=== PATIENT | male | born 2000 ===

== ENCOUNTER 2018-07-25 20:32 | Emergency (ER) | payer SELFPAY ==
[2018-07-25 20:44] VITALS: BMI 19.6
[2018-07-25 20:48] VITALS: TEMP 98.4
--- NOTE | 2018-07-25 21:19 | C.PDOC ---
History Of Present Illness 18 y/o male comes in to ED complaining of stye-like lesions on his right eye for the past 1-2 weeks. Patient states it started with one bump on the top of his eye 2 weeks ago, and another appeared 3 days ago that has increased in size. Patient denies any fever, visual changes, SOB, headache, nausea, vomiting, dizziness, or other complaints. Has not seen an eye doctor yet for this problem. Chief Complaint (Nursing): Abnormal Skin Integrity History Per: Patient History/Exam Limitations: no limitations Onset/Duration Of Symptoms: Days Current Symptoms Are (Timing): Still Present Past Medical History Reviewed: Historical Data, Nursing Documentation, Vital Signs Vital Signs: Last Vital Signs Temp 98.4 F 07/25/18 20:47 Pulse 70 07/25/18 20:47 Resp 16 07/25/18 20:47 BP 108/65 07/25/18 20:47 Pulse Ox 100 07/25/18 20:47 Family History: States: No Known Family Hx - Social History Hx Alcohol Use: Yes Hx Substance Use: No - Immunization History Hx Tetanus Toxoid Vaccination: No Hx Influenza Vaccination: No Hx Pneumococcal Vaccination: No Review Of Systems Constitutional: Negative for: Fever, Chills Eyes: Positive for: Other (stye-like lesions on right eye). Negative for: Vision Change Cardiovascular: Negative for: Chest Pain Respiratory: Negative for: Cough, Shortness of Breath Gastrointestinal: Negative for: Nausea, Vomiting Skin: Negative for: Rash Physical Exam - Physical Exam Appears: Non-toxic, No Acute Distress Skin: Warm, Dry Head: Atraumatic, Normacephalic Eye(s): bilateral: PERRL, EOMI, right: Other (2 upper lid styes, one large lower lid stye with conjunctival injection, active drainage to one of the styes, tender to palpation, periorbital swelling) Oral Mucosa: Moist Tongue: Normal Appearing Lips: Normal Appearing Throat: No Erythema, No Exudate Neck: Normal ROM, Supple Chest: Symmetrical Cardiovascular: Rhythm Regular Respiratory: Normal Breath Sounds, No Wheezing Gastrointestinal/Abdominal: Soft, No Tenderness Extremity: Bilateral: Atraumatic, Normal ROM Neurological/Psych: Oriented x3, Normal Speech, Normal Motor, Normal Sensation ED Course And Treatment - Laboratory Results Result Diagrams: 07/25/18 21:16 07/25/18 21:16 O2 Sat by Pulse Oximetry: 100 (RA) Pulse Ox Interpretation: Normal - CT Scan/US orbits Other Rad Studies (CT/US): Read By Radiologist, Radiology Report Reviewed CT/US Interpretation: CT Maxillofacial with Intravenous Contrast. CLINICAL HISTORY: Rule out cellulitus in right eye. TECHNIQUE: Axial computed tomography images of the face with intravenous contrast. Sagittal and coronal reformatted images were generated. 0.00 mGy-cm. CONTRAST: With; VISI 320 100MLS. COMPARISON: None provided. FINDINGS: BONES: No acute fracture or aggressive appearing osseous lesion. The mandible is intact. SOFT TISSUES: The soft tissues are unremarkable. Please refer to ORBITS below. SINUSES: An 8.2 mm small mucous retention cyst or polyp is seen in the posterior right ethmoid sinus. Mucoperiosteal thickening is seen in the maxillary sinuses bilaterally compatible with sinusitis. The remaining sinuses are clear. ORBITS: Both globes appear intact. There is right periorbital/preseptal edema present. No retrobulbar hematoma or mass. No subcutaneous periorbital/retro-orbital gas detected. IMPRESSION: 1. Right periorbital/preseptal edema noted. No det ection of orbital cellulitis. 2. Bilateral maxillary sinusitis. 3. 8.2 mm mucous retention cyst or polyp in the posterior right ethmoid sinus. . Electronically signed on Jul 25, 2018 11:49:20 PM EDT by: Alan Almaguer M.D., M.B.A., Certified By [facility] Medical Decision Making Medical Decision Making: Plan: Vision Acuity is 20/25 (Right/Left) Pressure on right eye is 20. 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 - Scribe Statement The provider has reviewed the documentation as recorded by the Scribe Eduarda Arteaga All medical record entries made by the Scribe were at my direction and personally dictated by me. I have reviewed the chart and agree that the record accurately reflects my personal performance of the history, physical exam, medical decision making, and the department course for this patient. I have also personally directed, reviewed, and agree with the discharge instructions and disposition.
[2018-07-25 21:20] LABS: BASO % 0.6 % (0.0-2.0); EOS # 0.1 K/uL (0.0-0.7); EOS % 1.2 % (0.0-4.0); HEMOGLOBIN 15.8 g/dL (12.0-18.0); LYMPH # 1.5 K/uL (1.0-4.3); MEAN CELL VOLUME 89.6 fL (80.0-94.0); MEAN CORPUSCULAR HEMOGLOBIN 29.9 pg (27.0-31.0); MEAN CORPUSCULAR HGB CONC 33.4 g/dL (33.0-37.0); MEAN PLATELET VOLUME 8.5 fL (7.2-11.7); MONO # 0.6 K/uL (0.0-0.8); MONO % 8.2 % (0.0-10.0); NEUT # 5.2 K/uL (1.8-7.0); NRBC % 0.1 % (0.0-2.0); RBC 5.28 Mil/uL (4.40-5.90); RED CELL DISTRIBUTION WIDTH 13.4 % (11.5-14.5); WHITE BLOOD COUNT 7.4 K/uL (4.8-10.8)
[2018-07-25 21:31] LABS: ALB/GLOB RATIO 1.5 (1.0-2.1); ALBUMIN 4.7 g/dL (3.5-5.0); ALT/SGPT 17 U/L (21-72); AST/SGOT 25 U/L (17-59); BLOOD UREA NITROGEN 12 mg/dL (9-20); GFR NON-AFRICAN AMERICAN > 60
[2018-07-25] MEDS ORDERED: Iodixanol 320 MG/ML 100 ML BOTTLE IV ONE (22:04)
[2018-07-25] MEDS ORDERED: Tobramycin/Dexamethasone (Tobradex) Opth Sol (2.5 ml) OD STA (23:21)
[2018-07-26 00:04] VITALS: BP 124/72; PULSE 72; RESP 18; O2SAT 99
--- NOTE | 2018-07-26 08:38 | CT ---
Date of service: 07/25/2018 PROCEDURE: CT ORBITS WITH CONTRAST. HISTORY: r/o right orbital cellulitis COMPARISON: None available. TECHNIQUE: Following administration of intravenous iodinated contrast, axial CT images of the orbits were obtained. Coronal and sagittal reformats were generated. Intravenous contrast dose: 100 mL Visipaque 320 Radiation dose: Total exam DLP = 864.49 mGy-cm. This CT exam was performed using one or more of the following dose reduction techniques: Automated exposure control, adjustment of the mA and/or kV according to patient size, and/or use of iterative reconstruction technique. FINDINGS: RIGHT ORBIT: RIGHT BONY ORBIT: Normal. RIGHT INTRAORBITAL STRUCTURES: Globe: Normal. Extraocular muscles: Normal. Post septal space: Normal. Optic Nerve: Normal. Lacrimal Apparatus: Normal. RIGHT PRESEPTAL SOFT TISSUES: There is mild enhancing preseptal soft tissue. No evidence for postseptal soft tissue inflammatory changes. No evidence for periosteal abscess. LEFT ORBIT: LEFT BONY ORBIT: Normal. LEFT INTRAORBITAL STRUCTURES: Globe: Normal. Extraocular muscles: Normal. Post septal space: Normal. Optic Nerve: Normal. Lacrimal Apparatus: Normal. LEFT PRESEPTAL SOFT TISSUES: Normal. OTHER: There is moderate polypoid mucosal thickening in the maxillary sinuses, worse in the right maxillary sinus with aerosolized secretions and mild scattered mucoperiosteal thickening in the ethmoid air cells. IMPRESSION: 1. Mild right preseptal orbital cellulitis. No evidence for postseptal orbital cellulitis or periosteal op cysts. 2. Chronic maxillary sinusitis, worse on the right. Aerosolized secretions in the right maxillary sinus may represent acute sinusitis in the appropriate clinical setting. A preliminary report was provided by [employer].. The final report is tagged to the PA review folder.
== END 2018-07-26 00:03 | disposition home or self-care (01) ==
LOC: C.ER 20:32
DX: H00.011 Hordeolum externum right upper eyelid (principal); H00.012 Hordeolum externum right lower eyelid; H05.221 Edema of right orbit; H57.11 Ocular pain, right eye
CPT/HCPCS: 70481; 80053; 85025; 99285; Q9967